=== PATIENT | male | born 1990 | race Caucasian/White ===

== ENCOUNTER 2023-03-22 09:00 | Emergency (ER) | payer OTHER, BC, SELFPAY ==
--- NOTE | ~2023-03-22 | XR_ITS ---
EXAMINATION: Right foot and ankle x-ray CLINICAL INFORMATION: Pain COMPARISON: None TECHNIQUE: 3 views of the right foot and 3 views of the right ankle FINDINGS: Right foot: Bone alignment is normal. No fracture or dislocation. Mild degenerative change at the first MTP joint with small osteophytes. Joint spaces are otherwise normal. Soft tissues are normal. Right ankle: Bone alignment is normal. No fracture or dislocation. The ankle mortise is normal. Soft tissues are normal. XR/XR ankle RT 2V IMPRESSION: Right foot: Mild degenerative changes of the first MTP joint. Right ankle: Unremarkable exam.
--- NOTE | ~2023-03-22 | XR_ITS ---
EXAMINATION: Right foot and ankle x-ray CLINICAL INFORMATION: Pain COMPARISON: None TECHNIQUE: 3 views of the right foot and 3 views of the right ankle FINDINGS: Right foot: Bone alignment is normal. No fracture or dislocation. Mild degenerative change at the first MTP joint with small osteophytes. Joint spaces are otherwise normal. Soft tissues are normal. Right ankle: Bone alignment is normal. No fracture or dislocation. The ankle mortise is normal. Soft tissues are normal. XR/XR foot RT 2V IMPRESSION: Right foot: Mild degenerative changes of the first MTP joint. Right ankle: Unremarkable exam.
[2023-03-22 09:07] VITALS: BP 173/93; PULSE 100; RESP 18; TEMP 36.8; O2SAT 98; BMI 28.6
--- NOTE | 2023-03-22 09:24 | PC.NURSE ---
Patient presents after tripping on a mat at work yesterday landing hard on his right heel.Upon arrival today swelling is noted to right ankle, patient with minimal weight bearing to the area. Patient otherwise well appearing.
--- NOTE | 2023-03-22 09:50 | ED.LOWEXIN ---
HPI - Extremity Injury (Lower) General Chief Complaint: Extremity Injury, Lower Stated Complaint: r ankle pain Time Seen by Provider: 03/22/23 09:22 History of Present Illness HPI Narrative: Patient complains of right foot injury at work 1 day ago, he tripped twisting his foot and felt pain in the bottom of the foot, he continued working and walking a lot and pain was worse last night and now it is painful to walk on it He denies any other injury he denies any numbness weakness or tingling Related Data Allergies Allergy/AdvReac Type Severity Reaction Status Date / Time amoxicillin Allergy Unknown Verified 05/10/20 00:00 penicillin V Allergy Unknown Verified 05/10/20 00:00 Penicillins [PENICILLINS] Allergy Unknown HIVES Unverified 06/28/20 16:02 Sulfa (Sulfonamide Allergy Unknown UNKNOWN Unverified 06/28/20 16:02 Antibiotics) [SULFA (SULFONAMIDE ANTIBIOTICS)] [facility] Past Medical History Source: nursing notes reviewed Social History Social History Alcohol intake: never Smoked in Last 30 Days: No Use of substances other than those prescribed or required for medical reasons: No Advance Directives: No Physical Exam Vital Signs: Vital Signs: Last Vital Signs Temp 98.3 F 03/22/23 09:07 Pulse 88 03/22/23 10:40 Resp 15 03/22/23 10:40 BP 148/99 H 03/22/23 10:40 Pulse Ox 97 03/22/23 10:40 O2 Del Method Room Air 03/22/23 10:40 BMI result Body Mass Index 28.6 General appearance is no acute distress Head is normocephalic atraumatic Neck is supple Respiratory no distress Extremities the right foot has tenderness under the volar midfoot, skin of the foot is normal there is no obvious swelling there is tenderness, it is painful to flex and extend the ankle, the pain is in the volar foot, neurovascular intact distal Achilles tendon no deformity it is not tender in Stone test is normal Other extremities normal Course Course Course Narrative: X-rays of right foot and ankle are negative, patient is diagnosed with foot sprain, as it is work related you follow with work [facility] , and he is given an Emmanuel bandage Discharge Plan Discharge Clinical Impression: Right foot sprain Patient Disposition: Home, Self-Care Additional Instructions: X-rays did not show any broken bone, you likely have a sprain of the foot Follow with [facility] next week , they will will refer to orthopedic or electronics assembler and tester as needed Return any time any worse condition or any concerns Referrals: [facility] [Provider Group] (Right foot sprain) Stand Alone Forms: Work/School Release Interventions: ED Discharge Assessment Last Done: 03/22/23 10:40 Discharge Date/Time: 03/22/23 10:41
[2023-03-22 10:40] VITALS: BP 148/99; PULSE 88; RESP 15; O2SAT 97
== END 2023-03-22 10:41 | disposition home or self-care (01) ==
PROVIDERS: Emergency Provider Student in an Organized Health Care Education/Training Program
DX: S93.401A Sprain of unspecified ligament of right ankle, initial encounter (principal); M79.671 Pain in right foot; X50.1XXA Overexertion from prolonged static or awkward postures, initial encounter; Y93.9 Activity, unspecified; Y92.9 Unspecified place or not applicable; Y99.0 Civilian activity done for income or pay
CPT/HCPCS: 73600; 73620; 99283; 99284

== ENCOUNTER 2025-07-22 03:10 | Emergency (ER) | payer BC, SELFPAY ==
[2025-07-22 03:19] VITALS: BP 171/116; PULSE 115; RESP 20; TEMP 36.7; O2SAT 96; BMI 29.2
[2025-07-22 03:41] VITALS: BP 145/76; PULSE 100; RESP 20; O2SAT 96
--- OUTSIDE RECORDS SUMMARY | 2025-07-22 03:50 | XMS_ITS | Encounter Summary ---
Author Organization [facility] Address [address] [place] [address] Phone Care Team Providers Care Assistant Athletic Trainer Name Role Phone Maggy Alvarez MD Primary Care Provider [phone] Encounter Details Date Type Department Care Team (Late st Contact Info) Description 05/28/2017 Conversion Encounter [facility] [place] [address] [place] [address] Social History Tobacco Use Types Packs/Day Years Used Date Smoking Tobacco: Never Assessed Sex and Gender Information Value Date Recorded Sex Assigned at Not on file Legal Sex Male 4:26 PM EDT Gender Identity Not on file Sexual Orientation Not on file documented as of this encounter Plan of Treatment Not on file documented as of this encounter Visit Diagnoses Not on filedocumented in this encounter Care Teams Assistant Athletic Trainer Relationship Specialty Start Date End Date Maggy Alvarez MD [address] [place] [address] PCP - General 05/22/17 01/18/23 documented as of this encounter
--- OUTSIDE RECORDS SUMMARY | 2025-07-22 03:51 | XMS_ITS | Clinical Summary ---
Author Organization [facility] Address [address] [place] [address] Phone Care Team Providers Care Credit Collection Associate Name Role Phone Unavailable Primary Care Provider Unavailabl e Immunizations Immunization Administration Dates Next Due DTaP 5 12/29/1994, 1,06/03/1990,04/01,01/27/1990 Hep B, ped/adol 08/03/2000,03/31/2000,02/27/2000 Hib (PRP-T) 02/24/1991,11/04/1990,08/30/1990 IPV 12/29/1994, 1,04/01/1990,01/27 MMR 12/29/1994,02/24/1991 Meningococcal Conj (Menactra) MCV4P 12/28/2007 Td (adult) (MBL), 2 Lf tetan us toxoid, PF, adsorbed 12/01/2001 Tdap 12/28/2007 Family History Relation Name Status Comments Father Alive Father: Asthma Maternal Grandfather Materna l grandfather: Sudden /[place] under age 55 Maternal Grandmother Materna l grandmother: Migraines, Diabetes mellitus, Obesity Mother Mother: Migrain es, ADD/ADHD Social History Tobacco Use Types Packs/Day Years Used Date Smoking Tobacco: Never Assessed Sex and Gender Information Value Date Recorded Sex Assigned at Not on file Legal Sex Male 4:26 PM EDT Gender Identity Not on file Sexual Orientation Not on file Plan of Treatment Health Maintenance Due Date Last Done Comments Varicella Vaccines (1 of 2 - 13+ 2-dose series) 2002 HPV Vaccines (1 - 3-dose SCDM series) 2016 DTaP,Tdap,and Td Vaccines (7 - Td or Tdap) 12/27/2017 12/28/2007, 12/01/2001, 12/29/1994, Additional history exists Influenza Vaccines (#1) 2025 COVID-19 Vaccine (2024- season) 2025 HIB Vaccines Completed 02/24/1991, 10/13, 08/30/1990 IPV Vaccines Completed 12/29/1994, 05/12, 04/01/1990, Additional history exists MMR Vaccines Completed 12/29/1994, 02/24/1991 Hepatitis B Vaccines Completed 08/03/2000, 03/31/2000, 02/27/2000 Meningococcal Vaccine Completed 12/28/2007 Hepatitis A Vaccines Aged Out No long er eligible based on patient's age to complete this topic Men B Vaccine Aged Out No longer elig ible based on patient's age to complete this topic Pneumococcal Vaccine Aged Out No long er eligible based on patient's age to complete this topic
--- OUTSIDE RECORDS SUMMARY | 2025-07-22 03:51 | XMS_ITS | Patient Health Record ---
Author Organization [facility] Address [address] [facility] [place] [address] Care Team Providers Care Blood Or Blood Bank Technician Name Role Phone Piter Bonds MD Primary Care Provider Nelson Infante Unavailable [phone] Allergies Allergen (clinical drug ingredient) Drug/Non Drug Allergy documented on EMR Reaction Allergy Type Onset Date Status cefaclor ceclor (uncoded) Unknown Allergy Act zoë Biaxin Unknown Drug Allergy Active sulfa Unknown Drug Allergy Active Penicillin hives Drug Allergy Active erythromycin Unknown Drug Allergy Acti ve Reason For Referral No Information Problems Problem Type SNOMED Code ICD Code Onset Dates Problem Status W/U Status Risk Notes Problem Congenital pes cavus (031991641) Cavus Foot (754.71) Active confirmed Problem Metatarsalgia (25675858) Metatarsalgia (726.70) Active confirmed Problem Metatarsalgia (finding) (90155366) Plantarflexed Metatarsal (838.04) Active confirmed Plan Of Treatment Pending Test Test Name Order Date X ray : Foot, left 3V 05/26/2013 Insurance Providers Payer Name Payer Address Payer Phone Subscriber Number Group Number Insured Name Patient Relationship to Insured Coverage Start Date Coverage End Date [employer] [address] [place] [address] [phone] [id number] Jeevan Jane [facility] Child - Insured does not have Financial Responsibility (includes legally adopted child) Medical (General) History Medical History History ICD Code chicken pox Surgical History Surgery Date(Month/Year) wrist surgery
--- NOTE | 2025-07-22 05:24 | ED.GENADULT ---
HPI - General Adult General Chief complaint: General Medical Stated complaint: thrombosed hemorrhoid Time Seen by Provider: 07/22/25 05:24 History of Present Illness ED Provider: Hugo SOUTH narrative: The patient is a 34-year-old male who is generally in good health. He has no history of hemorrhoids. He says that on Thursday he 1st felt a mildly painful bump on his anus. He purchased some preparation H and applied it for a couple of days. He thought that it was getting better but 2 days ago the hemorrhoid seemed to get much bigger and have episodes of bleeding. Tonight he had an alarming episode of bleeding and came to the hospital for evaluation. He has had no fever, sweats, chills. He says that he did not feel that he has been constipated significantly recently. He denies straining at stool recently. Related Data Previous Rx's ?Medication ?Instructions ?Recorded acetaminophen 500 mg capsule 1,000 mg (2 x 500 mg) PO Q8H PRN 07/22/25 fever or pain #14 caps hydrocortisone 2.5 % topical cream 1 appl OK BID #30 grams 07/22/25 with perineal applicator (Anusol-HC) ibuprofen 400 mg tablet 400 mg PO Q6H PRN pain #14 tabs 07/22/25 Allergies Allergy/AdvReac Type Severity Reaction Status Date / Time amoxicillin Allergy Unknown Hives Verified 07/22/25 03:21 Penicillins (PENICILLINS) Allergy Unknown HIVES Verified 07/22/25 03:21 Sulfa (Sulfonamide Allergy Unknown UNKNOWN Verified 07/22/25 03:21 Antibiotics) (SULFA (SULFONAMIDE ANTIBIOTICS)) Review of Systems Review of Systems: Yes all other systems are reviewed and are negative [facility] Social History Social History Alcohol intake: current Alcohol intake frequency: a few times a week Alcohol type: beer Smoked in Last 30 Days: Yes Use of substances other than those prescribed or required for medical reasons: No Advance Directives: No Advance Directives Information Provided: No Physical Exam ED Vital Signs: Vital Signs - 24 hr 07/22/25 03:19 07/22/25 03:41 07/22/25 05:45 Temperature 98.1 F 97.5 F Pulse Rate 115 H 100 87 Respiratory Rate 20 20 Blood Pressure 171/116 H 145/76 H 139/81 Pulse Oximetry 96 96 97 Oxygen Delivery Method Room Air Room Air Room Air BMI result Body Mass Index 29.2 Const Other: The patient is a 34-year-old male who was awake and alert. He was lying in his side. He looked somewhat apprehensive but he did not seem acutely toxic. Orientation/consciousness: patient oriented x3 HENMT Other: The face is symmetrical. ?Mucous membranes moist. Eyes Other: Pupils are round equal, conjunctivae are clear, extraocular movements intact Neck Neck: Yes normal visual inspection and Yes full ROM Resp Effort & Inspection: normal respiratory effort GI Other: Abdomen is soft and nontender. Examination of the anus reveals what looks like an inflamed hemorrhoid associated with a small site of clot which I think was the site of bleeding. There was no active bleeding at the time I examined the patient. Skin Other: Skin is pale and dry General skin exam: no rashes or lesions noted Neuro General: patient oriented x3, tone normal, moves all extremities, no focal motor deficits and CN's II-XI intact bilaterally Extrem Other: No peripheral edema Medications Administered Discontinued Medications Generic Name Dose Route Start Last Admin Trade Name Bella PRN Reason Stop Dose Admin Lidocaine HCl 10 ml 07/22/25 06:08 07/22/25 06:31 Lidocaine Hcl 1 % Mpf 5 Ml Vial INFILTRATI 07/22/25 06:09 Not Given ONCE ONE Lidocaine/Epinephrine 10 ml 07/22/25 06:29 07/22/25 06:30 Lidocaine Hcl 1%/Epi 1:100,000 10 Ml Vial INFILTRATI 07/22/25 06:30 10 ml ONCE ONE Administration Medical Decision Making Medical Decision Making [facility] Narrative: The patient is a 34-year-old male who presents with the what seems to be an acute thrombosed hemorrhoid. Symptoms began 5 days ago on Thursday with what the patient describes as a small painful lump on the anal verge. He has no history of hemorrhoids. He applied preparation H for a couple of days but in the last 24-48 hours the swelling has gotten much more painful and there has been episodes of what sounds like somewhat significant bleeding. He was not bleeding of the time that I examined him. He seemed to have an acute thrombosed hemorrhoid. He was offered the option of treating this with topical applications (Anusol HC) were having an elliptical incision made to decompress the hemorrhoid. The patient would like to proceed with the procedure. Therefore, with the patient lying on his right side and with his knees pulled up I prepped the anal area with Betadine. I then used a lidocaine lollypop to apply topically for some topical anesthesia. I then injected several cc of 1% lidocaine with epinephrine. After good anesthesia was achieved I used a 11. Blade to make an elliptical excision of the mucosal tissue in the hemorrhoid. A clot immediately extruded from the hemorrhoid. The patient tolerated the procedure well. I inserted a small piece of Surgicel within the lumen of the incised hemorrhoid. The patient will be discharged to follow up with General surgery. The patient was advised to perform Sitz baths. Prescriptions for Anusol HC, ibuprofen, and acetaminophen were sent. Discharge Plan Discharge Clinical Impression: Hemorrhoid thrombosis Patient Disposition: Home, Self-Care Instructions: Hemorrhoids (ED) Additional Instructions: You have an acutely thrombosed hemorrhoid. This was incised to open up the hemorrhoid. Clot was removed. There is a small amount of a dressing in the opened hemorrhoid which may help reduce any rebleeding. This piece of gauze will fall out on its own. I have sent a prescription for a a medication to help with a hemorrhoid. This is a formulation of hydrocortisone to be applied to hemorrhoids. You may apply this twice a day. There is a prescription for ibuprofen and acetaminophen which you may use as needed for pain. Additional things to do include introducing fiber into your diet. Psyllium can be helpful in keeping stool soft. I would recommend taking a tbsp of psyllium and a large glass of water daily. Metamucil as 1 brand name for psyllium. As well you should try Sitz baths. I would do this after having a bowel movement. Fill a bathtub with a few inches of warm water in which you can sit for 15-20 minutes up to 3 times a day. I would recommend Googling Sitz baths for additional advice about how to perform Sitz baths. After bathing make sure you dry the area well. You may use a towel or a blow package drier. Please call the General surgery office on Thursday morning (or Thursday if Thursday is closed for the holiday). Arrange a follow up appointment with the General surgery office. Return to the emergency room if significantly worse. Prescriptions: New hydrocortisone [Anusol-HC] 2.5 % cream with perineal applicator 1 appl OK BID Qty: 30 0RF acetaminophen 500 mg capsule 1,000 mg PO Q8H PRN (Reason: fever or pain) Qty: 14 0RF ibuprofen 400 mg tablet 400 mg PO Q6H PRN (Reason: pain) Qty: 14 0RF Referrals: [facility] [place] General Surgeons [Provider Group, General Surgery] Clinical Impression: Hemorrhoid thrombosis Stand Alone Forms: Work/School Release Print Language: Italian
[2025-07-22 05:45] VITALS: BP 139/81; PULSE 87; TEMP 36.4; O2SAT 97
[2025-07-22] MEDS: Lidocaine HCl 1%/Epi 1:100,000 10 ML VIAL INFILTRATI (06:30)
[2025-07-22 07:22] VITALS: BP 139/81; PULSE 87; RESP 18; TEMP 36.4; O2SAT 97
== END 2025-07-22 07:22 | disposition home or self-care (01) ==
PROVIDERS: Emergency Provider Emergency Medicine
DX: K64.5 Perianal venous thrombosis (principal)
CPT/HCPCS: 96372; 99284; J1885; J2003; J2004

== ENCOUNTER 2025-07-26 10:43 | Outpatient (AMB) | payer BC, SELFPAY ==
--- NOTE | 2025-07-26 10:44 | MHC.OFFVIS ---
Vital Signs 07/26/25 10:49 Height 6 ft 4 in Weight 240 lb 6 oz BMI 29.3 Intake Visit Reasons: Thrombosed hemorrhoid Intake Note: This patient presents for [facility] [place] follow-up for thrombosed hemorrhoid. (07/22/2025) Pt c/o; unable to sit, reports some drainage, no fever or chills. Machine Coremaker Required: No Accompanied by: Self / Same As Patient Allergies amoxicillin Allergy (Unknown, Verified 07/26/25 10:50) Hives Penicillins (PENICILLINS) Allergy (Unknown, Verified 07/26/25 10:50) HIVES Sulfa (Sulfonamide Antibiotics) (SULFA (SULFONAMIDE ANTIBIOTICS)) Allergy (Unknown, Verified 07/26/25 10:50) UNKNOWN Medication List - Last Reviewed 07/26/25 by ASMITA Salguero acetaminophen 1,000 mg (2 x 500 mg) PO Q8H PRN diphenhydramine HCl (Benadryl Allergy) 50 mg PO BEDTIME PRN hydrocortisone 2.5% (Anusol-HC) 1 appl SC BID ibuprofen 400 mg PO Q6H PRN HPI HPI Thrombosed hemorrhoid: Details: 34-year-old male referred for thrombosed hemorrhoid. He went to the ER last 07/22/2025 because of a lump outside his anus. He describes some blood from this as well. He did not know that he had hemorrhoids in the past. However, a week ago he had noted a lump outside his anus which became progressively larger and tender. This eventually started to drain and bleed so he went to the ER. An I&D apparently was done there to release the thrombus He has been off work since that time and. He continues to have some pain although he says that this seems to be getting slowly better. Denies any fever or chills. [facility] Medical History (Updated 07/26/25 @ 11:03 by Rudy Watts MD) Thrombosed external hemorrhoid Surgical History (Updated 07/26/25 @ 10:51 by ASMITA Salguero) No pertinent past surgical history Family History (Updated 07/26/25 @ 10:51 by ASMITA Salguero) Other Family history unknown Social History Alcohol intake: current Alcohol intake frequency: a few times a week Alcohol type: beer Review of Systems Const Denies chills and Denies fever(s) Card Denies chest pain, Denies dyspnea and Denies dyspnea on exertion Resp Denies cough, Denies dyspnea and Denies dyspnea on exertion GI Reports hematochezia and Denies change in bowel habits Denies hematuria and Denies difficulty urinating Musc Denies back pain and Denies limited range of motion Neuro Denies focal weakness and Denies convulsions Psych Denies depression and Denies mood swings Physical Exam Vital Signs: BMI result Body Mass Index 29.3 Const General: comfortable and no acute distress Orientation/consciousness: patient oriented x3 Neck Neck: Yes no lymphadenopathy Resp Auscultation: clear to auscultation bilaterally Cardio Rhythm: regular rhythm GI Other: Rectal exam shows a thrombosed hemorrhoid on the right with some residual edema, old I&D site, discharge, no cellulitis, no induration Palpation (GI): Soft to palpation, nontender and no guarding Neuro General: patient oriented x3 Assessment & Plan Assessment & Plan (1) Thrombosed external hemorrhoid: Code(s): K64.5 - Perianal venous thrombosis Category: Medical Plan: An I&D he had been done in the ER 4 days ago. There is still some residual edema. I told him to continue doing hot Sitz baths. I am going to send him a prescription for ibuprofen and he does not want any narcotic We will see him again in the office next week to see how this is healing. He is comfortable with the plan. Medications: New ibuprofen 600 mg PO Q6H PRN 20 tabs 0RF pain Coding Level of Care Code New Pt Level 3 (89473) Diagnoses Thrombosed external hemorrhoid K64.5
[2025-07-26 10:49] VITALS: BMI 29.3
--- OUTSIDE RECORDS SUMMARY | 2025-07-26 12:51 | XMS_ITS | Patient Health Record ---
Author Organization [facility] Address [address] [facility] [place] [address] Care Team Providers Care Switch Maker Name Role Phone Piter Bonds MD Primary Care Provider Nelson Infante Unavailable [phone] Allergies Allergen (clinical drug ingredient) Drug/Non Drug [...] Status Risk Notes Problem Congenital pes cavus (103269061) Cavus Foot (754.71) Active confirmed Problem Metatarsalgia (16667064) Metatarsalgia (726.70) Active confirmed Problem Metatarsalgia (finding) (29461373) Plantarflexed Metatarsal (838.04) Active confirmed Plan Of Treatment Pending Test Test Name Order Date X ray : Foot, left 3V 05/26/2013 Insurance Providers Payer Name Payer Address Payer Phone Subscriber Number Group Number Insured Name Patient Relationship to Insured Coverage Start Date Coverage End Date [facility] [address] [place] [address] [phone] [id number] Jeevan [facility] Child - Insured does not have Financial Responsibility (includes legally adopted child) Medical (General) History Medical History History ICD Code chicken pox Surgical History Surgery Date(Month/Year) wrist surgery
--- OUTSIDE RECORDS SUMMARY | 2025-07-26 12:51 | XMS_ITS | Encounter Summary ---
Author Organization [facility] Address [address] [place] [address] Phone Care Team Providers Care Climatology Professor Name Role Phone Maggy Alvarez MD Primary Care Provider [phone] Encounter Details Date Type Department Care Team (Late st Contact Info) Description 05/28/2017 Conversion Encounter [facility] [place] [address] [place] [address] Social History Tobacco Use Types Packs/Day Years [...] on filedocumented in this encounter Care Teams Climatology Professor Relationship Specialty Start Date End Date Maggy Alvarez MD [address] [place] [address] PCP - General 05/22/17 01/18/23 documented as of this encounter
--- OUTSIDE RECORDS SUMMARY | 2025-07-26 12:51 | XMS_ITS | Clinical Summary ---
Author Organization [facility] Address [address] [place] [phone] Phone Care Team Providers Care Spray Drier Name Role Phone Unavailable Primary Care Provider [...] Asthma Maternal Grandfather Materna l grandfather: Sudden /[place] under age 55 Maternal Grandmother Materna l [...]
== END 2025-07-26 11:00 | disposition home or self-care (01) ==
LOC: HO.HGS 10:43
PROVIDERS: Visit Provider Surgery
DX: K64.5 Perianal venous thrombosis (principal)
CPT/HCPCS: 99203

== ENCOUNTER 2025-08-02 10:18 | Outpatient (AMB) | payer BC, SELFPAY ==
--- NOTE | 2025-08-02 10:18 | A.OFFVIS_ITS ---
Vital Signs 08/02/25 10:23 Height 6 ft 4 in Weight 239 lb 4 oz BMI 29.1 Intake Visit Reasons: 1wk follow up thrombosed hemorrhoid Intake Note: Patient presents for one week follow-up for thrombosed hemorrhoid. Pt c/o; no complaints. Data Communications Engineer Required: No Accompanied by: Self / Same As Patient Allergies amoxicillin Allergy (Unknown, Verified 08/02/25 10:24) Hives Penicillins (PENICILLINS) Allergy (Unknown, Verified 08/02/25 10:24) HIVES Sulfa (Sulfonamide Antibiotics) (SULFA (SULFONAMIDE ANTIBIOTICS)) Allergy (Unknown, Verified 08/02/25 10:24) UNKNOWN Medication List - Last Reconciled 08/02/25 by Rudy Watts MD acetaminophen 1,000 mg (2 x 500 mg) PO Q8H PRN diphenhydramine HCl (Benadryl Allergy) 50 mg PO BEDTIME PRN hydrocortisone 2.5% (Anusol-HC) 1 appl DC BID ibuprofen 400 mg PO Q6H PRN ibuprofen 600 mg PO Q6H PRN HPI HPI 1wk follow up thrombosed hemorrhoid: Details: I had seen him last week because of a thrombosed hemorrhoid. He had an I&D done in the ER for the thrombosed hemorrhoid last 07/22/2025. I had advised him on doing hot Sitz baths at home as the hemorrhoid appeared to be past the acute phase . He did have some residual edema of this thrombosed hemorrhoid at that time. He is feeling much better. He says he has been doing hot Sitz baths as well as applying steroid creams. He is able to sit down comfortably now. [facility] Medical History Thrombosed external hemorrhoid Surgical History No pertinent past surgical history Family History Other Family history unknown Social History Alcohol intake: current Alcohol intake frequency: a few times a week Alcohol type: beer Review of Systems Const Denies chills and Denies fever(s) Card Denies chest pain, Denies dyspnea and Denies dyspnea on exertion Resp Denies cough, Denies dyspnea and Denies dyspnea on exertion GI Denies hematochezia and Denies change in bowel habits Denies hematuria and Denies difficulty urinating Musc Denies back pain and Denies limited range of motion Neuro Denies focal weakness and Denies convulsions Psych Denies depression and Denies mood swings Physical Exam Const General: comfortable and no acute distress Resp Effort & Inspection: normal respiratory effort GI Other: Rectal exam shows the site to be much less indurated and less edematous although the external hemorrhoid still appears a little indurated Assessment & Plan Assessment & Plan (1) Thrombosed external hemorrhoid: Code(s): K64.5 - Perianal venous thrombosis Category: Medical Plan: He is doing much better with hot Sitz baths. I explained to him that he should keep doing this as much as he can. The site does appear to be much improved. I will see him again in the office in about a month to re-evaluate I advised him on the benefits of avoiding straining and constipation. Coding Level of Care Code Est Pt Level 2 (71965) Diagnoses Thrombosed external hemorrhoid K64.5
[2025-08-02 10:23] VITALS: BMI 29.1
--- OUTSIDE RECORDS SUMMARY | 2025-08-02 12:41 | XMS_ITS | Patient Health Record ---
Author Organization [facility] Address [address] [place] [address] Care Team Providers Care Adolescent Specialist Name Role Phone Piter Bonds MD Primary Care Provider Nelson Infante Unavailable [phone] Allergies Allergen (clinical drug ingredient) Drug/Non Drug Allergy documented on EMR Reaction Allergy Type Onset Date Status cefaclor ceclor (uncoded) Unknown Allergy Act zoë Biaxin Unknown Drug Allergy Active sulfa Unknown Drug Allergy Active Penicillin hives Drug Allergy Active erythromycin erythromycin Unknown Drug Allergy A ctive Reason For Referral No Information Problems Problem Type SNOMED Code ICD Code Onset Dates Problem Status W/U Status Risk Notes Problem Congenital pes cavus (792138254) Cavus Foot (754.71) Active confirmed Problem Metatarsalgia (08948005) Metatarsalgia (726.70) Active confirmed Problem Metatarsalgia (finding) (09738540) Plantarflexed Metatarsal (838.04) Active confirmed Plan Of Treatment Pending Test Test Name Order Date X ray : Foot, left 3V 05/26/2013 Insurance Providers Payer Name Payer Address Payer Phone Subscriber Number Group Number Insured Name Patient Relationship to Insured Coverage Start Date Coverage End Date [facility] [address] [place] [address] [phone] [id number] Jeevan Jane [facility] Child - Insured does not have Financial Responsibility (includes legally adopted child) Medical (General) History Medical History History ICD Code chicken pox Surgical History Surgery Date(Month/Year) wrist surgery
--- OUTSIDE RECORDS SUMMARY | 2025-08-02 12:41 | XMS_ITS | Encounter Summary ---
Author Organization [facility] Address [address] [place] [address] Phone Care Team Providers Care C2 Tactical Analysis Technician Name Role Phone Maggy Alvarez MD Primary Care Provider [phone] Encounter Details Date Type Department Care Team (Late st Contact Info) Description 05/28/2017 Conversion Encounter [facility] [place] [address] [place] [address] Social History Tobacco Use Types Packs/Day Years [...] on filedocumented in this encounter Care Teams C2 Tactical Analysis Technician Relationship Specialty Start Date End Date Maggy Alvarez MD [address] [place] [address] PCP - General 05/22/17 01/18/23 documented as of this encounter
--- OUTSIDE RECORDS SUMMARY | 2025-08-02 12:41 | XMS_ITS | Clinical Summary ---
Author Organization [facility] Address [address] [place] [phone] Phone Care Team Providers Care Tool And Die Maker Level Five Name Role Phone Unavailable Primary Care Provider [...] Asthma Maternal Grandfather Materna l grandfather: Sudden /[place] under age 55 Maternal Grandmother Materna l [...]
== END 2025-08-02 10:33 | disposition home or self-care (01) ==
LOC: HO.HGS 10:18
PROVIDERS: Visit Provider Surgery
DX: K64.5 Perianal venous thrombosis (principal)
CPT/HCPCS: 99212

== ENCOUNTER 2025-08-30 09:20 | Outpatient (AMB) | payer BC, SELFPAY ==
--- NOTE | 2025-08-30 09:48 | MHC.OFFVIS ---
Vital Signs 08/30/25 09:58 Height 6 ft 4 in Weight 241 lb 2 oz BMI 29.3 BP 143/82 H Blood Pressure Location Lt brachial Position Sitting Pulse 88 Intake Visit Reasons: 1m follow up thrombosed hemorrhoid Intake Note: Patient presents for a one month follow-up for hemorrhoids. Pt c/o; denies any discharge, bleeding or constipation, has no concerns Motor Builder Winder Required: No Accompanied by: Self / Same As Patient Allergies amoxicillin Allergy (Unknown, Verified 08/30/25 09:49) Hives Penicillins (PENICILLINS) Allergy (Unknown, Verified 08/30/25 09:49) HIVES Sulfa (Sulfonamide Antibiotics) (SULFA (SULFONAMIDE ANTIBIOTICS)) Allergy (Unknown, Verified 08/30/25 09:49) UNKNOWN Medication List - Last Reconciled 08/30/25 by Rudy Watts MD acetaminophen 1,000 mg (2 x 500 mg) PO Q8H PRN diphenhydramine HCl (Benadryl Allergy) 50 mg PO BEDTIME PRN hydrocortisone 2.5% (Anusol-HC) 1 appl CA BID ibuprofen 400 mg PO Q6H PRN ibuprofen 600 mg PO Q6H PRN HPI HPI 1m follow up thrombosed hemorrhoid: Details: He is here for follow-up for his previously thrombosed hemorrhoid He says that he is seems to be back to normal now. He had any pain or tenderness in the anal area. He denies any bleeding. [facility] Medical History Thrombosed external hemorrhoid Surgical History No pertinent past surgical history Family History Other Family history unknown Social History Alcohol intake: current Alcohol intake frequency: a few times a week Alcohol type: beer Review of Systems Const Denies chills and Denies fever(s) Card Denies chest pain, Denies dyspnea and Denies dyspnea on exertion Resp Denies cough, Denies dyspnea and Denies dyspnea on exertion GI Denies hematochezia and Denies change in bowel habits Denies hematuria and Denies difficulty urinating Musc Denies back pain and Denies limited range of motion Neuro Denies focal weakness and Denies convulsions Psych Denies depression and Denies mood swings Physical Exam Vital Signs: Last Vital Signs Pulse 88 08/30/25 09:58 BP 143/82 H 08/30/25 09:58 BMI result Body Mass Index 29.3 Const General: comfortable and no acute distress Resp Effort & Inspection: normal respiratory effort GI Other: Rectal exam shows that the thrombosed hemorrhoid has resolved completely. There is no evidence of any inflammation, tenderness, or swelling Assessment & Plan Assessment & Plan (1) Thrombosed external hemorrhoid: Code(s): K64.5 - Perianal venous thrombosis Category: Medical Plan: This has resolved completely. He denies any symptoms anymore. He does have some small external hemorrhoids seen on examination I told him that he can follow up in the office on a PRN basis if he has symptoms. I had advised to him to avoid doing and constipation. Coding Level of Care Code Est Pt Level 2 (30727) Diagnoses Thrombosed external hemorrhoid K64.5
[2025-08-30 09:58] VITALS: BP 143/82; PULSE 88; BMI 29.3
--- OUTSIDE RECORDS SUMMARY | 2025-08-30 17:14 | XMS_ITS | Clinical Summary ---
Author Organization [facility] Address [address] [place] [phone] Phone Care Team Providers Care Rn Bariatric Name Role Phone Unavailable Primary Care Provider [...] Asthma Maternal Grandfather Materna l grandfather: Sudden /[place] under age 55 Maternal Grandmother Materna l [...]
--- OUTSIDE RECORDS SUMMARY | 2025-08-30 17:14 | XMS_ITS | Patient Health Record ---
Author Organization [facility] Address [address] [place] [address] Care Team Providers Care Canvassing Manager Name Role Phone Piter Bonds MD Primary Care Provider Nelson Infante Unavailable [phone] Allergies Allergen (clinical drug ingredient) Drug/Non Drug [...] Status Risk Notes Problem Congenital pes cavus (757797371) Cavus Foot (754.71) Active confirmed Problem Metatarsalgia (77067727) Metatarsalgia (726.70) Active confirmed Problem Metatarsalgia (finding) (60494327) Plantarflexed Metatarsal (838.04) Active confirmed Plan Of Treatment Pending Test Test Name Order Date X ray : Foot, left 3V 05/26/2013 Insurance Providers Payer Name Payer Address Payer Phone Subscriber Number Group Number Insured Name Patient Relationship to Insured Coverage Start Date Coverage End Date [facility] [address] [place] [address] [phone] [id number] Jeevan Jane [facility] Child - Insured does not have Financial Responsibility (includes legally adopted child) Medical (General) History Medical History History ICD Code chicken pox Surgical History Surgery Date(Month/Year) wrist surgery
--- OUTSIDE RECORDS SUMMARY | 2025-08-30 17:14 | XMS_ITS | Encounter Summary ---
Author Organization [facility] Address [address] [place] [address] Phone Care Team Providers Care Grape Crusher Name Role Phone Maggy Alvarez MD Primary Care Provider [phone] Encounter Details Date Type Department Care Team (Late st Contact Info) Description 05/28/2017 Conversion Encounter [facility] [place] [address] [place] [address] Social History Tobacco Use Types Packs/Day Years [...] on filedocumented in this encounter Care Teams Grape Crusher Relationship Specialty Start Date End Date Maggy Alvarez MD [address] [place] [address] PCP - General 05/22/17 01/18/23 documented as of this encounter
== END 2025-08-30 10:32 | disposition home or self-care (01) ==
LOC: HO.HGS 09:20
PROVIDERS: Visit Provider Surgery
DX: K64.5 Perianal venous thrombosis (principal)
CPT/HCPCS: 99212

== ENCOUNTER 2025-09-14 08:42 | Outpatient (AMB) | payer BC, SELFPAY ==
[2025-09-14 09:14] VITALS: BP 202/98; PULSE 96; RESP 18; O2SAT 99; BMI 28.9
--- NOTE | 2025-09-14 09:14 | MHC.PC.OV ---
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: No Accompanied by: Self / Same As Patient Allergies clavulanic acid (From Augmentin) Allergy (Mild, Verified 09/14/25 09:21) Unknown sulfamethoxazole (From Bactrim) Allergy (Mild, Verified 09/14/25 09:21) Unknown trimethoprim (From Bactrim) Allergy (Mild, Verified 09/14/25 09:21) Unknown amoxicillin Allergy (Unknown, Verified 09/14/25 09:21) Hives Penicillins (PENICILLINS) Allergy (Unknown, Verified 09/14/25 09:21) HIVES Sulfa (Sulfonamide Antibiotics) (SULFA (SULFONAMIDE ANTIBIOTICS)) Allergy (Unknown, Verified 09/14/25 09:21) UNKNOWN trimetroprim Allergy (Unknown, Uncoded 09/14/25 09:21) Unknown Medication List - Last Reconciled 09/14/25 by Kesha Damon MD acetaminophen 1,000 mg (2 x 500 mg) PO Q8H PRN diphenhydramine HCl (Benadryl Allergy) 50 mg PO BEDTIME PRN ibuprofen 400 mg PO Q6H PRN ibuprofen 600 mg PO Q6H PRN Tobacco use date assessed: 09/14/25 Dental Screening Dental Screen Date: 09/14/25 Did you have a dental visit in the last 12 months?: Yes Did you have a dental problem in the last 6 months where you did not have access to dental care?: No Was dental information given to patient?: Patient has dentist HPI HPI Comments History of Present Illness Details The patient is a 34 year old male with PMH of HTN and TUD presenting to [facility] primary care. He has not seen a doctor in approximately 10 years. The visit was prompted by a recommendation from a general surgery follow-up for a hemorrhoid that occurred on 07/22/2025. The hemorrhoid burst, prompting an emergency room visit, and subsequently resolved completely with hydrocortisone cream. Upon presentation, the patient was noted to have a blood pressure of 202/98 mmHg. He attributes his high readings to white coat hypertension, as he gets nervous at the doctor's office. He denies associated symptoms such as headaches or chest pain. His father has a history of high blood pressure requiring multiple medications. Repeat BP in clinic is 170/100. Past surgical history includes a rotator cuff repair for a bone spur in [id number], a tonsillectomy in childhood, and removal of a wrist ganglion cyst. He reports using Tylenol, ibuprofen, and Benadryl as needed for joint pain and allergies, respectively. He has no known family history of colon cancer. [facility] Medical History Thrombosed external hemorrhoid Surgical History No pertinent past surgical history Family History Other Family history unknown Social History (Updated 09/14/25 @ 09:23 by Marva Torres MA) Alcohol intake: current Alcohol intake frequency: a few times a week Alcohol type: beer Patient Tobacco Use Status: Current everyday Tobacco user e-Cigarette/Vaping Use: Never Used Substance Use Type: Marijuana Current occupational status: employed Cognitive needs: No Hearing needs: No Vision needs: Yes Questionnaire PHQ-9 Over the last 2 weeks, how often have you been bothered by any of the following problems? 1. Little interest or pleasure in doing things: not at all 2. Feeling down, depressed, or hopeless: not at all 3. Trouble falling or staying asleep, or sleeping too much: not at all 4. Feeling tired or having little energy: not at all 5. Poor appetite or overeating: not at all 6. Feeling bad about yourself - or that you are a failure or have let yourself or your family down: not at all 7. Trouble concentrating on things, such as reading the newspaper or watching television: not at all 8. Moving or speaking so slowly that other people could have noticed. Or the opposite - being so fidgety or restless that you have been moving around a lot more than usual: not at all 9. Thoughts that you would be better off or of hurting yourself in some way: not at all Total score: 0 Depression Screening Interpretation: Negative Depression Screening Done: Yes Source: Developed by Drs. Andrez Stephens, Negrita Marie, Paul Zhu and colleagues, with an educational swati from [employer]. Thrive Questionnaire Date Thrive assessed: 09/14/25 I am a: Patient What is your living situation today?: I have a steady place to live Within the past 12 months, did the food you bought not last and you didn't have the money to get more?: Never true Within the past 12 months, did you worry whether your food would run out before you got money to buy more?: Never true Do you have trouble paying for medicines?: No Do you have trouble getting transportation to medical appointments?: No Do you have trouble paying your heating and electricity bill?: No Do you have trouble taking care of your child, family member or friend?: No Do you have trouble with day-to-day activities such as bathing, preparing meals, shopping, managing finances, etc.?: No Are you currently unemployed and looking for a job?: No Are you interested in more education?: No Please select the resources that you would like help with: None Currently or been in a relationship where the following occur: No concerns reported THRIVE Score: 0 AUDIT C Alcohol Use Questionnaire (AUDIT-C) 1. How often do you have a drink containing alcohol?: 2-3 times a week 2. How many drinks containing alcohol do you have on a typical day when you are drinking?: 1 or 2 3. How often do you have six or more drinks on one occasion?: Never Total Score: 3 MCKENNA-7 AMB Questionnaire MCKENNA-7 Date MCKENNA - 7 assessed: 09/14/25 Feeling nervous, anxious, or on edge: 0 = Not at all Not being able to stop or control worryin = Not at all Worrying too much about different things: 0 = Not at all Trouble relaxin = Not at all Being so restless that it is hard to sit still: 0 = Not at all Becoming easily annoyed or irritable: 0 = Not at all Feeling afraid as if something awful might happen: 0 = Not at all Total MCKENNA-7 score (0-4 normal; 5-9 mild; 10-14 moderate; 15-21 severe): 0 Source: Developed by Drs. Andrez Stephens, Negrita Marie, Paul Zhu and colleagues, with an educational swati from [employer]. Review of Systems Const Details: Positives besides what was mentioned in HPI are in BOLD Constitutional: No Weight Change, No Fever, No Chills, No Night Sweats, No Fatigue, No Malaise ENT/Mouth: No Hearing Changes, No Ear Pain, No Nasal Congestion, No Sinus Pain, No Hoarseness, No sore throat, No Rhinorrhea, No Swallowing Difficulty Eyes: No Eye Pain, No Swelling, No Redness, No Foreign Body, No Discharge, No Vision Changes Cardiovascular: No Chest Pain, No SOB, No PND, No Dyspnea on Exertion, No Orthopnea, No Claudication, No Edema, No Palpitations Respiratory: No Cough, No Sputum, No Wheezing, No Smoke Exposure, No Dyspnea Gastrointestinal: No Nausea, No Vomiting, No Diarrhea, No Constipation, No Pain, No Heartburn, No Anorexia, No Dysphagia, No Hematochezia, No Melena, No Flatulence, No Jaundice Genitourinary: No Dysmenorrhea, No DUB, No Dyspareunia, No Dysuria, No Urinary Frequency, No Hematuria, No Urinary Incontinence, No Urgency, No Flank Pain, No Urinary Flow Changes, No Hesitancy Musculoskeletal: No Arthralgias, No Myalgias, No Joint Swelling, No Joint Stiffness, No Back Pain, No Neck Pain, No Injury History Skin: No Skin Lesions, No Pruritis, No Hair Changes, No Breast/Skin Changes, No Nipple Discharge Neuro: No Weakness, No Numbness, No Paresthesias, No Loss of Consciousness, No Syncope, No Dizziness, No Headache, No Coordination Changes, No Recent Falls Psych: No Anxiety/Panic, No Depression, No Insomnia, No Personality Changes, No Delusions, No Rumination, No SI/HI/AH/VH, No Social Issues, No Memory Changes, No Violence/Abuse Hx., No Eating Concerns Heme/Lymph: No Bruising, No Bleeding, No Transfusions History, No Lymphadenopathy Endocrine: No Polyuria, No Polydipsia, No Temperature Intolerance Physical exam (Primary Care) Vital Signs: Last Vital Signs Pulse 96 09/14/25 09:14 Resp 18 09/14/25 09:14 BP 202/98 H 09/14/25 09:14 Pulse Ox 99 12/04/25 09:14 Oxygen Delivery Method Room Air 09/14/25 09:14 BMI result Body Mass Index 28.9 Tobacco/Smoking Status: Tobacco use Status Tobacco use date assessed 09/14/25 09/14/25 09:28 Patient Tobacco Use Status Current everyday Tobacco 09/14/25 09:28 e-Cigarette/Vaping Use Never Used 09/14/25 09:28 PHQ-9: PHQ-9 Score PHQ-9: Total score 0 09/14/25 09:36 Depression Screening Interpretation: Negative Thrive Assessment: Date of Thrive Assessment Date Thrive assessed 09/14/25 09/14/25 09:28 Currently or been in a relationship where the following occur: No concerns reported Const Other: Pertinent findings are in BOLD GENERAL APPEARANCE NAD, activity normal for age, well developed/ well nourished, no cyanosis, pallor, or diaphoresis. EYES lids/conjunctiva normal. EARS/NOSE/THROAT Mucous membranes moist, nares normal, lips/teeth normal uvula midline without oral pharyngeal erythema, exudate or swelling TMs normal bilaterally. No lymphangitis/lymphedema. HEAD/NECK normocephalic atraumatic, no facial trauma, neck is supple. RESPIRATORY respiratory effort normal, speaks in full sentences, no tripod position, no accessory muscle use. Lungs clear to auscultation without rhonchi, wheezes, rales CARDIAC Regular rate and rhythm, no edema. ABDOMINAL Soft, ND/NT. No evidence of fluid wave. No pulsatile masses on exam, rebound tenderness, Hoang sign or pain over Mcburney's point. MUSCLES/EXTREMITIES No abnormal range of motion, no swelling. SKIN Warm, pink and dry. No rashes, dermatoses, petechiae or lesions. NEUROLOGICAL Speech is clear and appropriate. Normal level of consciousness. Gait and coordination are normal. 5/5 strength in all extremities. PSYCH Normal mood and affect. Judgement/competence is appropriate Immunizations Boostrix Tdap 2.5 Lf unit-8 mcg-5 Lf/0.5 mL intramuscular syringe Performing Provider: Kesha Damon MD [facility] Administered by: Melanie Moreland CMA on 09/14/25 09:41 Dose Route Admin Location Dispensed Lot Number Expiration Date [facility] Photogrammetric Engineer 0.5 mL IM Left Deltoid 0.5 mL [id number] 03/27/28 22519-077-42 Datam Total Dispensed Waste 0.5 mL 0 % VIS Given Date VIS Provided VIS Publication Date 09/14/25 Single Vaccine 21 Eligibility Eligibility Date Funding Source Not [facility] Eligible 09/14/25 Private Coding Level of Care Code New Pt Prev Care 18-39yr([id number] Diagnoses Hypertension, unspecified type I10 Hypertension type: unspecified Healthcare maintenance Z00.00 Tobacco use disorder F17.200 Thrombosed external hemorrhoid K64.5 Time Spent (min) 30 Assessment & Plan Assessment & Plan (1) HTN (hypertension): Code(s): I10 - Essential (primary) hypertension Category: Medical Qualifiers: Hypertension type: unspecified Qualified Code(s): I10 - Essential (primary) hypertension Plan: - The patient's initial blood pressure was 202/98 mmHg, and on recheck was 170/100 mmHg. - Though the patient believes this is white coat hypertension, the values are significantly elevated. - As he is asymptomatic and the pressure decreased on recheck, a visit to the emergency department is not required at this time. - Start amlodipine 10 mg once daily. - Advised to obtain a home blood pressure cuff and monitor readings daily at night while relaxed, keeping a log to review at follow-up. - Advised to discontinue ibuprofen and use Tylenol as needed for pain, as NSAIDs can elevate blood pressure. - Schedule follow-up in 10 days to 2 weeks for blood pressure recheck. (2) Healthcare maintenance: Code(s): Z00.00 - Encounter for general adult medical examination without abnormal findings Category: Medical Plan: CBC, CMP, Lipid panel, A1C, TSH w T4, vit D. Ordered. Shingles 2 doses when >50 yo. At 50. COVID: two doses. Completed. Pneumococcal: >50 yo. 18-49 with CKD, lung disease, weakened immune system, Heart disease, DM, cochlear implant. At 50. Flu vaccine: Declined. Tdap: every 10 years. Last done in 2012. Repeat today. Colonoscopy: 45-75. At 45. AAA: 65 -75. At 65. CT lun - 80. At 50. PSA: 50 -70 every two years. At 50. HIV: Ordered. HCV: Ordered. (3) Tobacco use disorder: Code(s): F17.200 - Nicotine dependence, unspecified, uncomplicated Category: Medical Plan: - The patient smokes cigarettes daily. - Advised to stop smoking. (4) Thrombosed external hemorrhoid: Code(s): K64.5 - Perianal venous thrombosis Category: Medical Plan: Resolved. Plan I discussed with the patient that his blood pressure today was severely elevated, initially at 202/98 mmHg. I explained that while he feels it is related to anxiety at the doctor's office, these numbers are too high to be solely attributed to white coat hypertension. After rechecking, his pressure was 170/100 mmHg. Because the pressure decreased and he is not having any symptoms like chest pain or headache, I informed him that a trip to the emergency department is not necessary today. I am starting him on amlodipine 10 mg daily to manage his blood pressure. I advised him to stop using ibuprofen and to rely on Tylenol for pain, as ibuprofen can further elevate his blood pressure. I recommended he purchase a home blood pressure cuff to monitor his readings daily and keep a log. We will follow up in 10 days to two weeks to re-evaluate his blood pressure. We also discussed lifestyle modifications, including smoking cessation and reducing intake of sugar, especially from juices with high-fructose corn syrup. I ordered fasting labs to get a baseline on his overall health, including kidney and liver function. Orders: Orders Complete Blood Count no Diff Today Z00.00 - Encounter for general adult medical examination without abnormal findings Lipid Panel Today Z00.00 - Encounter for general adult medical examination without abnormal findings TSH reflex Free T4 Today Z00.00 - Encounter for general adult medical examination without abnormal findings HIV Ab/Ag Today Z00.00 - Encounter for general adult medical examination without abnormal findings Hepatitis C Antibody Reflex Today Z00.00 - Encounter for general adult medical examination without abnormal findings Comprehensive Met. Panel Today Z00.00 - Encounter for general adult medical examination without abnormal findings Vitamin D 25-OH Total Today Z00.00 - Encounter for general adult medical examination without abnormal findings TDaP Immunization Today Z23 - Encounter for immunization Medications: New amlodipine 10 mg PO DAILY 90 tabs 3RF
[2025-09-14 09:47] VITALS: BP 170/100
== END 2025-09-14 09:48 | disposition home or self-care (01) ==
LOC: HO.HMCH 08:42
PROVIDERS: Visit Provider Internal Medicine
DX: Z00.00 Encounter for general adult medical examination without abnormal findings (principal); I10 Essential (primary) hypertension; F17.200 Nicotine dependence, unspecified, uncomplicated; K64.5 Perianal venous thrombosis; Z23 Encounter for immunization

== ENCOUNTER → 2025-09-14 08:42 | Outpatient (BNVA) | payer BC, SELFPAY | PROVIDERS: Visit Provider Internal Medicine | DX: Z00.00 Encounter for general adult medical examination without abnormal findings (principal); I10 Essential (primary) hypertension; K64.5 Perianal venous thrombosis; F17.200 Nicotine dependence, unspecified, uncomplicated; Z23 Encounter for immunization | CPT/HCPCS: 90471; 90715; 96127 ==

== ENCOUNTER 2025-09-15 10:25 | Outpatient (REF) | payer BC, SELFPAY ==
--- OUTSIDE RECORDS SUMMARY | 2025-09-15 12:01 | XMS_ITS | Encounter Summary ---
Author Organization [facility] Address [address] [place] [address] Phone Care Team Providers Care Audit Clerk Name Role Phone Maggy Alvarez MD Primary Care Provider [phone] Encounter Details Date Type Department Care Team (Late st Contact Info) Description 05/28/2017 Conversion Encounter [facility] [address] [place] [address] Social History Tobacco Use Types Packs/Day Years [...] on filedocumented in this encounter Care Teams Audit Clerk Relationship Specialty Start Date End Date Maggy Alvarez MD [address] [place] [address] PCP - General 05/22/17 01/18/23 documented as of this encounter
--- OUTSIDE RECORDS SUMMARY | 2025-09-15 12:03 | XMS_ITS | Clinical Summary ---
Author Organization [facility] Address [address] [place] [phone] Phone Care Team Providers Care Carpet Layer Helper Name Role Phone Unavailable Primary Care Provider [...] Asthma Maternal Grandfather Materna l grandfather: Sudden /[place] under age 55 Maternal Grandmother Materna l [...]
[2025-09-15 13:32] LABS: Hematocrit 46.2 % (42.0-52.0); Hemoglobin 16.6 g/dl (14.0-18.0); Mean Corpuscular HGB Conc 35.9 g/dl (31.0-36.0); Mean Corpuscular Hemoglobin 36.9 pg (27.0-33.0); Mean Corpuscular Volume 102.7 fL (80.0-98.0); NRBC Abs Auto 0.000 X10*3/uL (0.0-0.012); NRBC Pct Auto 0.0 /100WBC (0.0-0.2); Platelet Count 200 X10*3/uL (160-400); Red Blood Count 4.50 X10*6/uL (4.60-5.80); White Blood Count 13.2 X10*3/uL (4.8-10.8)
[2025-09-15 14:16] LABS: Alanine Aminotransferase 104 U/L (0-40); Albumin Level 5.4 g/dL (3.5-5.0); Alkaline Phosphatase 88 U/L (39-117); Anion Gap 14 (12-20); Aspartate Amino Transferase 85 U/L (5-37); Blood Urea Nitrogen 6 mg/dL (9-16); Calcium 10.0 mg/dL (8.4-10.2); Carbon Dioxide 25 mmol/L (22-29); Chloride 100 mmol/L (96-108); Cholesterol 280 mg/dL (<200); Estimated Glomerular Filt Rate > 60; HDL Cholesterol 62 mg/dL (>40); Potassium 4.0 mmol/L (3.3-5.1); Sodium 135 mmol/L (135-145); Total Protein 8.0 g/dL (6.5-8.0); Triglycerides 306 mg/dL (<150)
[2025-09-16 08:42] LABS: HIV Num 1 0.10 S/CO (0.00-0.99); ~HepC Num1 0.08 S/CO (0.00-0.79); ~Hepatitis C Antibody Nonreactive (Nonreactive)
== END 2025-09-15 10:26 | disposition home or self-care (01) ==
LOC: HO.10HDL 10:25
PROVIDERS: Visit Provider Internal Medicine
DX: Z00.00 Encounter for general adult medical examination without abnormal findings (principal); Z13.0 Encounter for screening for diseases of the blood and blood-forming organs and certain disorders involving the immune mechanism; Z11.4 Encounter for screening for human immunodeficiency virus [HIV]; Z11.59 Encounter for screening for other viral diseases; Z13.29 Encounter for screening for other suspected endocrine disorder; Z13.21 Encounter for screening for nutritional disorder; Z13.6 Encounter for screening for cardiovascular disorders
CPT/HCPCS: 36415; 80053; 80061; 82306; 84443; 85027; 86803; 87389

== ENCOUNTER 2025-09-29 08:18 | Outpatient (AMB) | payer BC, SELFPAY ==
--- NOTE | 2025-09-29 08:20 | A.OFFPC_ITS ---
Vital Signs 09/29/25 08:25 Height 6 ft 4 in Weight 237 lb BMI 28.8 BP 150/78 H Blood Pressure Location Lt brachial Position Sitting Respiration 18 Pulse 97 Pulse Source Pulse Oximeter Temp 99.0 F Pulse Oximetry (%) 98 Oxygen Delivery Method Room Air Intake Visit Reasons: Blood pressure. 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 Accompanied by: Self / Same As Patient Allergies clavulanic acid (From Augmentin) Allergy (Mild, Verified 09/29/25 08:22) Unknown sulfamethoxazole (From Bactrim) Allergy (Mild, Verified 09/29/25 08:22) Unknown trimethoprim (From Bactrim) Allergy (Mild, Verified 09/29/25 08:22) Unknown amoxicillin Allergy (Unknown, Verified 09/29/25 08:22) Hives Penicillins (PENICILLINS) Allergy (Unknown, Verified 09/29/25 08:22) HIVES Sulfa (Sulfonamide Antibiotics) (SULFA (SULFONAMIDE ANTIBIOTICS)) Allergy (Unknown, Verified 09/29/25 08:22) UNKNOWN trimetroprim Allergy (Unknown, Uncoded 09/14/25 09:21) Unknown Medication List - Last Reconciled 09/29/25 by Kesha Damon MD acetaminophen 1,000 mg (2 x 500 mg) PO Q8H PRN amlodipine 10 mg PO DAILY diphenhydramine HCl (Benadryl Allergy) 50 mg PO BEDTIME PRN Tobacco use date assessed: 09/14/25 Dental Screening Dental Screen Date: 09/14/25 HPI HPI Comments History of Present Illness Details The patient is a 34-year-old male with PMH of AUD, TUD, HLD, vit D deficiency presenting for follow-up of hypertension. He was seen two weeks ago in our clinic and his BP was 170/100. He was started on amlodipine and reports experiencing transient dizziness on the first day, which has since resolved. He has been monitoring his blood pressure at home, with readings showing improvement, trending down from initial highs of 173 mmHg and 187 mmHg to the 120s systolic. His diastolic pressures have ranged from 79 to 92 mmHg. Recent lab work from 09/15 revealed several abnormalities. His white blood cell count was elevated at 13.2, and the patient correlates this with feeling unwell and having a fever of 102?F that weekend. His total cholesterol was 280, liver enzymes were elevated with an AST of 85 and ALT of 104, MCV was high at 102, and vitamin D was low at 9.6. HIV and Hepatitis C tests were negative. The patient reports alcohol consumption, previously three to four times a week, but has recently cut down. For pain, such as recent back soreness from work, he has been taking Tylenol and has stopped using ibuprofen. [facility] Medical History Thrombosed external hemorrhoid Surgical History No pertinent past surgical history Family History Other Family history unknown Social History (Updated 09/14/25 @ 09:23 by Marva Torres MA) Alcohol intake: current Alcohol intake frequency: a few times a week Alcohol type: beer Patient Tobacco Use Status: Current everyday Tobacco user e-Cigarette/Vaping Use: Never Used Substance Use Type: Marijuana Current occupational status: employed Cognitive needs: No Hearing needs: No Vision needs: Yes Questionnaire Thrive Questionnaire Date Thrive assessed: 09/14/25 I am a: Patient What is your living situation today?: I have a steady place to live Within the past 12 months, did the food you bought not last and you didn't have the money to get more?: Never true Within the past 12 months, did you worry whether your food would run out before you got money to buy more?: Never true Do you have trouble paying for medicines?: No Do you have trouble getting transportation to medical appointments?: No Do you have trouble paying your heating and electricity bill?: No Do you have trouble taking care of your child, family member or friend?: No Do you have trouble with day-to-day activities such as bathing, preparing meals, shopping, managing finances, etc.?: No Are you currently unemployed and looking for a job?: No Are you interested in more education?: No Currently or been in a relationship where the following occur: No concerns reported THRIVE Score: 0 MCKENNA-7 AMB Questionnaire MCKENNA-7 Date MCKENNA - 7 assessed: 09/14/25 Source: Developed by Drs. Andrez Stephens, Negrita MariePaul and colleagues, with an educational swati from [employer]. Review of Systems Const Details: As per HPI. Physical exam (Primary Care) Vital Signs: Last Vital Signs Temp 99.0 F 09/29/25 08:25 Pulse 97 09/29/25 08:25 Resp 18 09/29/25 08:25 BP 150/78 H 09/29/25 08:25 Pulse Ox 98 09/29/25 08:25 Oxygen Delivery Method Room Air 09/29/25 08:25 BMI result Body Mass Index 28.8 Tobacco/Smoking Status: Tobacco use Status Tobacco use date assessed 09/14/25 09/29/25 08:20 Patient Tobacco Use Status Current everyday Tobacco 09/29/25 08:20 e-Cigarette/Vaping Use Never Used 09/29/25 08:20 Thrive Assessment: Date of Thrive Assessment Date Thrive assessed 09/14/25 09/29/25 08:20 Currently or been in a relationship where the following occur: No concerns reported Coding Level of Care Code Est Pt Level 4 (27845) Diagnoses Hypertension, unspecified type I10 Hypertension type: unspecified Elevated liver enzymes R74.8 HLD (hyperlipidemia) E78.5 Vitamin D deficiency E55.9 Macrocytosis D75.89 Leukocytosis D72.829 Time Spent (min) 30 Assessment & Plan Assessment & Plan (1) HTN (hypertension): Code(s): I10 - Essential (primary) hypertension Category: Medical Qualifiers: Hypertension type: unspecified Qualified Code(s): I10 - Essential (primary) hypertension Plan: - The patient's blood pressure is trending down on amlodipine. - Continue Amlodipine 10 mg Daily. - Instructed to monitor blood pressure once daily at night when relaxed. - Follow up in 4 weeks to re-evaluate. (2) Elevated liver enzymes: Code(s): R74.8 - Abnormal levels of other serum enzymes Category: Medical Plan: - Liver enzymes are significantly elevated (AST 85, ALT 104). - The differential diagnosis includes alcohol-related liver injury, non- alcoholic fatty liver disease, and other chronic or viral liver diseases. - Strongly advised complete cessation of alcohol to prevent further liver damage. - Ordered a comprehensive liver workup including: Alpha-1 antitrypsin, ELAINE, celiac panel, ceruloplasmin, repeat liver panel and CBC, ferritin, hepatitis B panel, immunoglobulins, mitochondrial antibodies, and smooth muscle antibodies. - Ordered an abdominal/liver ultrasound. - Discussed pain management strategy to alternate between Tylenol 500 mg (which affects the liver) and ibuprofen (which can affect blood pressure) if analgesia is needed. This way he would not rely on one medication more than the other. - Depending on the results, a referral to a liver specialist may be necessary. (3) HLD (hyperlipidemia): Code(s): E78.5 - Hyperlipidemia, unspecified Category: Medical Plan: - The patient has elevated cholesterol (Total 288, LDL 157). - Given the patient's age (under 40), the current plan is to monitor without initiating pharmacotherapy at this time. - advised on exercise, reduce the amount of sugars and fats. (4) Vitamin D deficiency: Code(s): E55.9 - Vitamin D deficiency, unspecified Category: Medical Plan: - Vitamin D level is low at 9.6. - Prescribed vitamin D supplementation. (5) Macrocytosis: Code(s): D75.89 - Other specified diseases of blood and blood-forming organs Category: Medical Plan: - The patient has an elevated MCV of 102, which may be related to alcohol use or vitamin deficiencies. - Plan to check vitamin B12 and folic acid levels. (6) Leukocytosis: Code(s): D72.829 - Elevated white blood cell count, unspecified Category: Medical Plan: - Patient reports feeling sick and had a fever when he got his lab drawn which explain the leucocytosis. - Will repeat CBC to reassess the leukocytosis (previous WBC 13.2). Plan I had a detailed discussion with the patient regarding his follow-up for hypertension and his recent lab results. I noted the positive trend in his home blood pressure readings since starting amlodipine and advised him to continue the medication, monitoring his pressure once daily at night. We spent significant time discussing his abnormal lab findings, particularly the elevated liver enzymes. I explained that this is a serious finding and outlined the potential causes, including alcohol use, diet, or other underlying medical conditions. I strongly recommended complete cessation of alcohol to prevent the risk of progressive and irreversible liver damage. I informed him of the plan for a comprehensive workup to determine the cause of the liver enzyme elevation, which includes extensive bloodwork and a liver ultrasound. We also discussed a safer strategy for pain management by alternating Tylenol and ibuprofen to minimize risks to both his liver and blood pressure. The plan is to follow up in four weeks to review all results and determine the next steps, which may include a referral to a liver specialist. Orders: Orders Ceruloplasmin Today R74.8 - Abnormal levels of other serum enzymes Celiac Disease Panel Today R74.8 - Abnormal levels of other serum enzymes Comprehensive Met. Panel Today R74.8 - Abnormal levels of other serum enzymes Hepatitis B Surface Antigen Today R74.8 - Abnormal levels of other serum enzymes Hepatitis B Surface Antibody Today R74.8 - Abnormal levels of other serum enzymes Hepatitis B Core Antibody Today R74.8 - Abnormal levels of other serum enzymes US abdomen christopher w elastography Today R74.8 - Abnormal levels of other serum enzymes Smooth Muscle Antibody Today R74.8 - Abnormal levels of other serum enzymes ELAINE Reflex Titer and Pattern Today R74.8 - Abnormal levels of other serum enzymes Immunoglobulins,IgG IgA IgM Today R74.8 - Abnormal levels of other serum enzymes Ferritin Today R74.8 - Abnormal levels of other serum enzymes Alpha 1 Anti-trypsin Today R74.8 - Abnormal levels of other serum enzymes Complete Blood Count no Diff Today R74.8 - Abnormal levels of other serum enzymes Vitamin B12 and Folate Today D64.9 - Anemia, unspecified, R74.8 - Abnormal levels of other serum enzymes Mitochondrial Antibody Today R74.8 - Abnormal levels of other serum enzymes Medications: New cholecalciferol (vitamin D3) 50 mcg PO DAILY 60 caps 3RF Changed From acetaminophen 1,000 mg (2 x 500 mg) PO Q8H PRN 14 caps 0RF fever or pain To acetaminophen 500 mg PO Q8H PRN 14 caps 0RF fever or pain
--- OUTSIDE RECORDS SUMMARY | 2025-09-29 08:24 | XMS_ITS | Clinical Summary ---
Author Organization [facility] Address [address] [place] [id number] Phone Care Team Providers Care Labor Delivery Specialist Name Role Phone Unavailable Primary Care Provider [...] Asthma Maternal Grandfather Materna l grandfather: Sudden /ID under age 55 Maternal Grandmother Materna l [...]
--- OUTSIDE RECORDS SUMMARY | 2025-09-29 08:24 | XMS_ITS | Patient Health Record ---
Author Organization [facility] Address [address] [facility] [place] [place] [id number] Care Team Providers Care Electronic Commerce Specialist Name Role Phone Piter Bonds MD Primary Care Provider Nelson Infante Unavailable [phone] Allergies Allergen (clinical drug ingredient) Drug/Non Drug [...] Status Risk Notes Problem Congenital pes cavus (593392538) Cavus Foot (754.71) Active confirmed Problem Metatarsalgia (89712038) Metatarsalgia (726.70) Active confirmed Problem Metatarsalgia (finding) (47165678) Plantarflexed Metatarsal (838.04) Active confirmed Plan Of Treatment Pending Test Test Name Order Date X ray : Foot, left 3V 05/26/2013 Insurance Providers Payer Name Payer Address Payer Phone Subscriber Number Group Number Insured Name Patient Relationship to Insured Coverage Start Date Coverage End Date [facility] [address] [place] [address] [phone] [id number] Jeevan Jane [facility] Child - Insured does not have Financial Responsibility (includes legally adopted child) Medical (General) History Medical History History ICD Code chicken pox Surgical History Surgery Date(Month/Year) wrist surgery
--- OUTSIDE RECORDS SUMMARY | 2025-09-29 08:24 | XMS_ITS | Encounter Summary ---
Author Organization [facility] Address [address] [place] [address] Phone Care Team Providers Care Water And Sewer Systems Superintendent Name Role Phone Maggy Alvarez MD Primary Care Provider [phone] Encounter Details Date Type Department Care Team (Late st Contact Info) Description 05/28/2017 Conversion Encounter [facility] [place] [address] [place] [address] Social History Tobacco Use Types Packs/Day Years [...] on filedocumented in this encounter Care Teams Water [employer] Superintendent Relationship Specialty Start Date End Date Maggy Alvarez MD [address] [place] [address] PCP - General 05/22/17 01/18/23 documented as of this encounter
[2025-09-29 08:25] VITALS: BP 150/78; PULSE 97; RESP 18; TEMP 37.2; O2SAT 98; BMI 28.8
== END 2025-09-29 08:59 | disposition home or self-care (01) ==
LOC: HO.HMCH 08:19
PROVIDERS: Visit Provider Internal Medicine
DX: I10 Essential (primary) hypertension (principal); R74.8 Abnormal levels of other serum enzymes; E78.5 Hyperlipidemia, unspecified; E55.9 Vitamin D deficiency, unspecified; D75.89 Other specified diseases of blood and blood-forming organs; D72.829 Elevated white blood cell count, unspecified